=== PATIENT | male | born 1990 | race Caucasian/White ===

== ENCOUNTER 2017-02-28 13:37 | Emergency (ER) | payer MEDICAID, OTHER ==
[~2017-02-28] VITALS: Ht 190.5 cm; Wt 86.2 kg
[2017-02-28] MEDS ORDERED: HYDR-4274 PO (13:56)
[2017-02-28] MEDS ORDERED: PROP1TAB29 PO (13:56)
[2017-02-28] MEDS ORDERED: BUSP15TA47 PO (13:56)
[2017-02-28] MEDS ORDERED: ZYPR15TA PO (14:00)
[2017-02-28] MEDS ORDERED: LORazepam 1 MG TAB PO ONE ×2 (14:30→17:00)
[2017-02-28 15:10] LABS: METHADONE URINE NEGATIVE (NEGATIVE)
[2017-02-28 15:25] LABS: MEAN CORPUSCULAR HEMOGLOBIN 30.3 pg (27.0-33.0); MEAN CORPUSCULAR HGB CONC 33.8 g/dl (32.0-36.5); MEAN CORPUSCULAR VOLUME 89.5 fl (80.0-96.0); RED CELL DISTRIBUTION WIDTH 11.6 % (11.5-14.5); WHITE BLOOD COUNT 7.6 K/mm3 (4.0-10.0)
[2017-02-28 15:54] LABS: ALBUMIN 4.1 GM/DL (3.2-5.2); ALBUMIN/GLOBULIN RATIO 1.21 (1.00-1.93); ALKALINE PHOSPHATASE 104 U/L (45-117); ALT/SGPT 37 U/L (12-78); ANION GAP 8 MEQ/L (8-16); AST/SGOT 21 U/L (15-37); BILIRUBIN,DIRECT 0.1 MG/DL (0.0-0.2); BILIRUBIN,TOTAL 0.5 MG/DL (0.2-1.0); BLOOD UREA NITROGEN 19 MG/DL (7-18); CARBON DIOXIDE LEVEL 22 MEQ/L (21-32); CHLORIDE LEVEL 106 MEQ/L (98-107); CREATININE FOR GFR 0.91 MG/DL (0.70-1.30); GLOMERULAR FILTRATION RATE > 60.0 (>60); GLUCOSE, FASTING 95 MG/DL (70-105); POTASSIUM SERUM 4.6 MEQ/L (3.5-5.1); SODIUM LEVEL 136 MEQ/L (136-145); TOTAL PROTEIN 7.5 GM/DL (6.4-8.2)
[2017-02-28 19:39] VITALS: BP 128/81
== END 2017-02-28 19:45 | disposition home or self-care (01) ==
LOC: M ED 15:42
DX: F19.10 Other psychoactive substance abuse, uncomplicated (principal); F31.9 Bipolar disorder, unspecified; F41.9 Anxiety disorder, unspecified; Z91.5 Personal history of self-harm; F17.200 Nicotine dependence, unspecified, uncomplicated; Z79.899 Other long term (current) drug therapy
CPT/HCPCS: 36415; 80048; 80076; 80306; 84443; 85027; 99285; G0480

== ENCOUNTER 2017-03-12 15:11 | Emergency (ER) | payer OTHER ==
[~2017-03-12 15:11] MED LIST: BUSP15TA47 PO; HYDR-4274 PO; PROP1TAB29 PO; ZYPR15TA PO
[2017-03-12] MEDS ORDERED: NALOXONE INJ 2 MG/2 ML SYRINGE (J2310) As Ordered ONE (15:14)
[2017-03-12] MEDS ORDERED: NALOXONE INJ 2 MG/2 ML SYRINGE (J2310) IV STA (15:17)
[2017-03-12] MEDS ORDERED: NALOXONE INJ 2 MG/2 ML SYRINGE (J2310) ONE ×2 (15:30)
[2017-03-12] MEDS ORDERED: NS 1,000 ML IV ONE (15:30)
[2017-03-12] MEDS ORDERED: NALOXONE INJ 0.4 MG/1 ML VIAL (J2310) ONE (15:33)
[2017-03-12 15:37] VITALS: BP 139/84
== END 2017-03-12 16:10 | disposition left against medical advice (07) ==
LOC: M ED 15:32
DX: R41.82 Altered mental status, unspecified (principal); T40.601A Poisoning by unspecified narcotics, accidental (unintentional), initial encounter; F11.10 Opioid abuse, uncomplicated; F17.200 Nicotine dependence, unspecified, uncomplicated; Z79.899 Other long term (current) drug therapy
CPT/HCPCS: 93041; 96374; 99284; J2310

== ENCOUNTER 2017-06-17 18:36 | Emergency (ER) | payer OTHER, SELFPAY ==
[~2017-06-17] VITALS: Ht 190.5 cm; Wt 88.6 kg
[~2017-06-17 18:36] MED LIST changes: -HYDR-4274 PO; +HYDR50TA70 PO
[2017-06-17] MEDS ORDERED: NORCO, ANEXSIA 5/325MG TABLET (HYDROcodone/ACETAMINOPHEN) PO ONE (19:30)
[2017-06-17] MEDS ORDERED: NAPR500T PO (20:40)
[2017-06-17] MEDS ORDERED: OXYCODONE/APAP 5MG/325MG(BULK FOR ED) 1 TABLET PO ONE (20:45)
[2017-06-17 20:54] VITALS: BP 120/75
--- NOTE | 2017-06-18 08:39 | REP ---
REASON: Pain after trauma. PRIORS: None. There is a fracture involving the base of the 5th metacarpal with volar angulation. There is also a nondisplaced fracture involving the base of the 3rd metacarpal. IMPRESSION: 3rd and 5th metacarpal fractures. Signed by Ruben Johnson DO 06/18/2017 09:21 A
== END 2017-06-17 20:54 | disposition home or self-care (01) ==
LOC: M ED 18:36
DX: S62.306A Unspecified fracture of fifth metacarpal bone, right hand, initial encounter for closed fracture (principal); F17.210 Nicotine dependence, cigarettes, uncomplicated; W51.XXXA Accidental striking against or bumped into by another person, initial encounter; Y92.410 Unspecified street and highway as the place of occurrence of the external cause; Y99.9 Unspecified external cause status; Y93.9 Activity, unspecified